=== PATIENT | female | born 1985 | race Two or more races ===

== ENCOUNTER 2021-10-04 13:15 | Emergency (ER) | payer OTHER ==
[~2021-10-04] VITALS: Ht 162.6 cm; Wt 75.0 kg
[2021-10-04 15:31] VITALS: BP 139/96
[2021-10-04] MEDS ORDERED: IBUPROFEN 600 MG TABLET PO ONE (16:15)
[2021-10-04] MEDS ORDERED: IBUP-2070 PO (17:04)
== END 2021-10-04 17:46 | disposition home or self-care (01) ==
LOC: EMS 13:20
DX: S90.32XA Contusion of left foot, initial encounter (principal); W20.8XXA Other cause of strike by thrown, projected or falling object, initial encounter; Y93.89 Activity, other specified; Y92.89 Other specified places as the place of occurrence of the external cause; Y99.8 Other external cause status
CPT/HCPCS: 99283